=== PATIENT | male | born 1970 | race Caucasian/White ===

== ENCOUNTER 2017-11-15 19:00 | Emergency (ER) | payer SELFPAY ==
[~2017-11-15 19:00] MED LIST: KEFLEX500 MG PO; MOTRIN600 MG PO
== END 2017-11-15 19:20 | disposition left against medical advice (07) ==
LOC: EME 19:00
DX: S09.90XA Unspecified injury of head, initial encounter (principal); Z53.21 Procedure and treatment not carried out due to patient leaving prior to being seen by health care provider

== ENCOUNTER 2018-01-18 19:23 | Inpatient (IN) | payer SELFPAY ==
[~2018-01-18] VITALS: Ht 167.6 cm; Wt 64.0 kg
[2018-01-18 19:40] LABS: BASOPHIL (%) 0.6 % (0-1); BASOPHIL COUNT 0.1 K/uL (0-0.1); EOSINOPHIL (%) 2.1 % (0-5); EOSINOPHIL COUNT 0.2 K/uL (0-0.3); HEMATOCRIT 46.4 % (38.0-50.0); HEMOGLOBIN 16.2 G/DL (12.5-16.6); IMMATURE GRANULOCYTE (%) 0.2 % (0.0-0.7); LYMPHOCYTE (%) 28.7 % (15-42); LYMPHOCYTE COUNT 2.4 K/uL (1.0-2.8); MCH 32.1 PG (29.0-34.0); MCHC 34.9 G/DL (30.0-36.0); MCV 92.1 FL (86-99); MONOCYTE (%) 9.5 % (3-12); MONOCYTE COUNT 0.8 K/uL (0-0.8); NEUTROPHIL (%) 58.9 % (45-76); NEUTROPHIL COUNT 4.9 K/uL (1.8-6.4); PLATELET COUNT 220 K/uL (156-360); RBC DIS.WIDTH-CV 15.4 % (11.8-14.6); RBC DIS.WIDTH-SD 52.2 % (39-53); RED BLOOD COUNT 5.04 M/uL (4.00-5.50); WHITE BLOOD COUNT 8.4 K/uL (4.1-10.2)
[2018-01-18 19:53] LABS: AMYLASE 47 IU/L (1-118); CHLORIDE 102 mEq/L (99-109); POTASSIUM 4.3 mEq/L (3.7-5.4); SODIUM 136 mEq/L (136-147)
[2018-01-18 19:55] LABS: GLUCOSE 77 mg/dL (70-99)
[2018-01-18 19:58] LABS: SERUM ETHYL ALCOHOL 225 mg/dL
[2018-01-18 19:59] LABS: CREATININE 0.8 mg/dL (0.6-1.3); GFR ESTIMATE (CALCULATED) > 59 mL/min/ (58.99-99999)
[2018-01-18 20:00] LABS: UREA NITROGEN (BUN) 11 mg/dL (9-23)
[2018-01-18 20:02] LABS: LIPASE 17 U/L (1.0-51.0)
[2018-01-18] MEDS ORDERED: SUBOXONE PO (20:14)
[2018-01-18 22:13] LABS: HEMATOCRIT 41.9 % (38.0-50.0); HEMOGLOBIN 14.4 G/DL (12.5-16.6); MCH 31.9 PG (29.0-34.0); MCHC 34.4 G/DL (30.0-36.0); MCV 92.7 FL (86-99); PLATELET COUNT 189 K/uL (156-360); RBC DIS.WIDTH-CV 15.6 % (11.8-14.6); RBC DIS.WIDTH-SD 53.2 % (39-53); RED BLOOD COUNT 4.52 M/uL (4.00-5.50); WHITE BLOOD COUNT 5.5 K/uL (4.1-10.2)
[2018-01-18 22:59] VITALS: BP 131/82
[2018-01-19 04:00] VITALS: BP 127/74
[2018-01-19 05:34] LABS: HEMATOCRIT 42.1 % (38.0-50.0); HEMOGLOBIN 14.2 G/DL (12.5-16.6); MCH 31.3 PG (29.0-34.0); MCHC 33.7 G/DL (30.0-36.0); MCV 92.9 FL (86-99); PLATELET COUNT 209 K/uL (156-360); RBC DIS.WIDTH-CV 15.4 % (11.8-14.6); RBC DIS.WIDTH-SD 52.7 % (39-53); RED BLOOD COUNT 4.53 M/uL (4.00-5.50); WHITE BLOOD COUNT 7.6 K/uL (4.1-10.2)
[2018-01-19 05:57] LABS: ALBUMIN 3.8 G/DL (3.2-4.8); ALKALINE PHOSPHATASE 61 IU/L (3-129); ALT (GPT) 20 IU/L (3-49); AST (GOT) 34 IU/L (2-34); CHLORIDE 104 MEQ/L (99-109); CREATININE 0.8 MG/DL (0.6-1.3); GFR ESTIMATE (CALCULATED) > 59 mL/min/ (58.99-99999); POTASSIUM 4.9 MEQ/L (3.7-5.4); SODIUM 133 MEQ/L (136-147); TOTAL BILIRUBIN 1.1 MG/DL (0.0-1.0); TOTAL PROTEIN 5.4 G/DL (6.4-8.3); UREA NITROGEN (BUN) 11 mg/dL (9-23)
[2018-01-19 06:09] LABS: GLUCOSE 111 mg/dL (70-99)
[2018-01-19 09:20] VITALS: BP 159/104
[2018-01-19] MEDS ORDERED: HYDROCODON-ACE1 EAC7 PO (12:08)
[2018-01-19 12:15] VITALS: BP 156/89
[2018-01-19 16:15] VITALS: BP 138/82
[2018-01-19 21:05] VITALS: BP 143/90
[2018-01-19 23:42] VITALS: BP 126/84
[2018-01-20 04:30] VITALS: BP 134/88
[2018-01-20 06:28] LABS: HEMATOCRIT 32.7 % (38.0-50.0); MCH 32.5 PG (29.0-34.0); MCHC 34.6 G/DL (30.0-36.0); RBC DIS.WIDTH-CV 15.6 % (11.8-14.6); RBC DIS.WIDTH-SD 53.8 % (39-53); WHITE BLOOD COUNT 6.4 K/uL (4.1-10.2)
[2018-01-20 06:34] LABS: HEMOGLOBIN 11.3 G/DL (12.5-16.6); RED BLOOD COUNT 3.48 M/uL (4.00-5.50)
[2018-01-20 06:46] LABS: PLAT.SUFFICIENCY DECREASED
[2018-01-20 06:57] LABS: PLATELET COUNT 146 K/uL (156-360)
[2018-01-20 07:23] VITALS: BP 135/88
[2018-01-20 11:22] VITALS: BP 139/96
[2018-01-20 15:17] LABS: HEMATOCRIT 36.7 % (38.0-50.0); HEMOGLOBIN 12.4 G/DL (12.5-16.6); MCH 32.2 PG (29.0-34.0); MCHC 33.8 G/DL (30.0-36.0); MCV 95.3 FL (86-99); PLATELET COUNT 173 K/uL (156-360); RBC DIS.WIDTH-CV 15.5 % (11.8-14.6); RBC DIS.WIDTH-SD 54.8 % (39-53); RED BLOOD COUNT 3.85 M/uL (4.00-5.50); WHITE BLOOD COUNT 6.8 K/uL (4.1-10.2)
== END 2018-01-20 16:31 | disposition home or self-care (01) | DRG 423 ==
LOC: TRA 19:23 → 4EAST 20:00 → EDOF 20:00 → ENRESERV 20:01 → 4EAST 22:31
PROVIDERS: Emergency Medicine; Surgery
PROC: 0W3P0ZZ Control Bleeding in Gastrointestinal Tract, Open Approach (ICD-10-PCS; principal; 2018-01-18)
DX: S36.115A Moderate laceration of liver, initial encounter (principal); S31.612A Laceration without foreign body of abdominal wall, epigastric region with penetration into peritoneal cavity, initial encounter; X99.1XXA Assault by knife, initial encounter; F10.129 Alcohol abuse with intoxication, unspecified; Y90.7 Blood alcohol level of 200-239 mg/100 ml; F11.10 Opioid abuse, uncomplicated; F17.200 Nicotine dependence, unspecified, uncomplicated; Z23 Encounter for immunization
CPT/HCPCS: 71045; 71260; 74177; 80048; 80053; 81003; 82150; 83690; 83735; 85025; 85027; 86850; 86900; 86901; 93005; 99281; 99285; G0480; J0131; J0330; J0690; J1100; J1885; J2250; J2405; J2710; J3010; J3411; J3475; J3480; J7030; J7643

== ENCOUNTER 2018-01-29 10:52 | Emergency (ER) | payer SELFPAY ==
[~2018-01-29] VITALS: Ht 165.1 cm; Wt 59.2 kg
[~2018-01-29 10:52] MED LIST changes: +HYDROCODON-ACE1 EAC7 PO; +SUBOXONE PO
[2018-01-29 11:24] VITALS: BP 158/107
== END 2018-01-29 13:00 | disposition left against medical advice (07) ==
LOC: EME 10:52
DX: S36.113D Laceration of liver, unspecified degree, subsequent encounter (principal); Z53.21 Procedure and treatment not carried out due to patient leaving prior to being seen by health care provider